=== PATIENT | female | born 1980 | race Two or more races ===

== ENCOUNTER 2021-07-11 10:05 | Observation (INO) | payer MEDICAID ==
[~2021-07-11] VITALS: Ht 149.9 cm; Wt 63.5 kg
[2021-07-11] MEDS ORDERED: PREN-96 PO (11:05)
[2021-07-11] MEDS ORDERED: METF-370 PO (11:06)
[2021-07-11] MEDS ORDERED: GLYB2.5T8 PO (11:07)
[2021-07-11 12:02] LABS: Basophils # (auto) 0 10 ^3/uL (0-0.2); Basophils % (auto) 0.4 % (0.0-2.0); Eosinophils # (auto) 0.1 10 ^3/uL (0-0.8); Eosinophils % (auto) 0.8 % (0.0-7.0); Hematocrit 35.9 % (36.0-46.0); Hemoglobin 12.1 g/dL (12.2-16.2); Lymphocytes # (auto) 2.5 10 ^3/uL (0.4-5.4); Lymphocytes % (auto) 21.5 % (10.0-50.0); Mean Corpuscular Hemoglobin 30.8 pg (28.0-32.0); Mean Corpuscular Hgb Conc. 33.8 g/dL (32.0-36.0); Mean Corpuscular Volume 91.2 fL (80.0-100.0); Monocytes # (auto) 0.5 10 ^3/uL (0-1.3); Monocytes % (auto) 4.5 % (0.0-12.0); Neutrophils # (auto) 8.5 10 ^3/uL (1.6-8.6); Neutrophils % (auto) 72.8 % (37.0-80.0); Red Blood Cells 3.94 10^6/uL (4.0-5.20); Red Cell Distribution Width 13.4 % (11.8-14.3); White Blood Cell 11.7 10^3/uL (4.4-10.8)
[2021-07-11 12:27] LABS: Albumin 2.5 g/dL (3.4-5.0); Calcium 8.7 mg/dL (8.5-10.1); Potassium 3.5 mmol/L (3.5-5.1)
[2021-07-11 12:32] LABS: BUN/Creatinine Ratio 11.1; Bilirubin, Total 0.2 mg/dL (0.2-1.0); Total Protein 6.9 g/dL (6.4-8.2)
[2021-07-11 12:44] LABS: Protein, Urine 43.9 mg/dL (0.0-11.9)
== END 2021-07-11 12:14 | disposition home or self-care (01) ==
LOC: LDRP 10:05
PROVIDERS: ADMIT Obstetrics & Gynecology; ATTEND Obstetrics & Gynecology
DX: O24.415 Gestational diabetes mellitus in pregnancy, controlled by oral hypoglycemic drugs (principal); O13.2 Gestational [pregnancy-induced] hypertension without significant proteinuria, second trimester; Z3A.27 27 weeks gestation of pregnancy
CPT/HCPCS: 36415; 59025; 80053; 81002; 82570; 82948; 82962; 83036; 84156; 85025; G0378

== ENCOUNTER 2021-07-13 11:00 | Observation (INO) | payer MEDICAID ==
[~2021-07-13 11:00] MED LIST: GLYB2.5T8 PO; METF-370 PO; PREN-96 PO
[2021-07-13 11:57] LABS: Protein, Urine 14.3 mg/dL (0.0-11.9)
[2021-07-13 12:45] LABS: 24 Hr. Total Protein, Urine 257.4 mg/24 Hr (<149.1)
== END 2021-07-13 13:10 | disposition home or self-care (01) ==
LOC: LDRP 11:00
PROVIDERS: ADMIT Obstetrics & Gynecology; ATTEND Obstetrics & Gynecology
DX: O24.419 Gestational diabetes mellitus in pregnancy, unspecified control (principal); Z3A.27 27 weeks gestation of pregnancy
CPT/HCPCS: 59025; 81002; 84156; G0378

== ENCOUNTER 2021-07-20 10:34 | Observation (INO) | payer MEDICAID | END 2021-07-20 12:32 | disposition home or self-care (01) | LOC: LDRP 10:34 | PROVIDERS: ADMIT Obstetrics & Gynecology; ATTEND Obstetrics & Gynecology | DX: O24.419 Gestational diabetes mellitus in pregnancy, unspecified control (principal); O99.333 Smoking (tobacco) complicating pregnancy, third trimester; F17.200 Nicotine dependence, unspecified, uncomplicated; Z3A.28 28 weeks gestation of pregnancy | CPT/HCPCS: 59025; 76818; 81002; 82948; 82962; 94760; G0378 ==

== ENCOUNTER 2021-07-27 11:32 | Observation (INO) | payer MEDICAID ==
[~2021-07-27] VITALS: Ht 162.6 cm; Wt 65.8 kg
== END 2021-07-27 13:10 | disposition home or self-care (01) ==
LOC: LDRP 11:32
PROVIDERS: ADMIT Obstetrics & Gynecology; ATTEND Obstetrics & Gynecology
DX: O24.419 Gestational diabetes mellitus in pregnancy, unspecified control (principal); Z3A.29 29 weeks gestation of pregnancy; Z98.891 History of uterine scar from previous surgery
CPT/HCPCS: 59025; 76818; 81002; 82948; 82962; 94760; G0378

== ENCOUNTER 2021-08-04 08:24 | Observation (INO) | payer MEDICAID | END 2021-08-04 09:33 | disposition home or self-care (01) | LOC: LDRP 08:24 | PROVIDERS: ADMIT Obstetrics & Gynecology; ATTEND Obstetrics & Gynecology | DX: O24.419 Gestational diabetes mellitus in pregnancy, unspecified control (principal); O99.333 Smoking (tobacco) complicating pregnancy, third trimester; F17.200 Nicotine dependence, unspecified, uncomplicated; Z3A.30 30 weeks gestation of pregnancy | CPT/HCPCS: 59025; 76818; 81002; 82962; 94760; G0378; G0379 ==

== ENCOUNTER 2021-08-08 10:24 | Observation (INO) | payer MEDICAID ==
[2021-08-08] MEDS ORDERED: LACTATED RINGER'S 1,000 ML IV ONE (12:30)
[2021-08-08] MEDS ORDERED: TERBUTALINE SULFATE 1 MG/ML 1ML VIAL SC SCH (14:15)
== END 2021-08-08 15:25 | disposition home or self-care (01) ==
LOC: LDRP 10:35
PROVIDERS: ADMIT Obstetrics & Gynecology; ATTEND Obstetrics & Gynecology
DX: O24.415 Gestational diabetes mellitus in pregnancy, controlled by oral hypoglycemic drugs (principal); Z3A.31 31 weeks gestation of pregnancy
CPT/HCPCS: 59025; 76818; 81002; 82948; 82962; 96360; 96372; G0378; J3105

== ENCOUNTER 2021-08-11 10:05 | Observation (INO) | payer MEDICAID | END 2021-08-11 11:30 | disposition home or self-care (01) | LOC: LDRP 10:05 | PROVIDERS: ADMIT Obstetrics & Gynecology; ATTEND Obstetrics & Gynecology | DX: O24.415 Gestational diabetes mellitus in pregnancy, controlled by oral hypoglycemic drugs (principal); Z3A.31 31 weeks gestation of pregnancy | CPT/HCPCS: 59025; 76818; 81002; 82948; 82962; G0378; G0379 ==

== ENCOUNTER 2021-08-15 10:13 | Observation (INO) | payer MEDICAID | END 2021-08-15 12:50 | disposition home or self-care (01) | LOC: LDRP 10:45 | PROVIDERS: ADMIT Obstetrics & Gynecology; ATTEND Obstetrics & Gynecology | DX: O24.415 Gestational diabetes mellitus in pregnancy, controlled by oral hypoglycemic drugs (principal); O26.893 Other specified pregnancy related conditions, third trimester; N89.8 Other specified noninflammatory disorders of vagina; Z3A.32 32 weeks gestation of pregnancy | CPT/HCPCS: 59025; 76818; 81002; 82948; 82962; 94760; G0378 ==

== ENCOUNTER 2021-08-18 08:04 | Observation (INO) | payer MEDICAID | END 2021-08-18 09:36 | disposition home or self-care (01) | LOC: LDRP 08:04 | PROVIDERS: ADMIT Obstetrics & Gynecology; ATTEND Obstetrics & Gynecology | DX: O24.419 Gestational diabetes mellitus in pregnancy, unspecified control (principal); Z3A.32 32 weeks gestation of pregnancy; Z98.891 History of uterine scar from previous surgery | CPT/HCPCS: 59025; 76818; 81002; 82948; 82962; G0378; G0379 ==

== ENCOUNTER 2021-08-22 08:23 | Observation (INO) | payer MEDICAID | END 2021-08-22 09:45 | disposition home or self-care (01) | LOC: LDRP 08:23 | PROVIDERS: ADMIT Obstetrics & Gynecology; ATTEND Obstetrics & Gynecology | DX: O24.419 Gestational diabetes mellitus in pregnancy, unspecified control (principal); Z3A.33 33 weeks gestation of pregnancy | CPT/HCPCS: 59025; 76818; 81002; 82948; 82962; G0378 ==

== ENCOUNTER 2021-08-25 10:23 | Observation (INO) | payer MEDICAID ==
[~2021-08-25] VITALS: Ht 134.6 cm; Wt 64.4 kg
[2021-08-25] MEDS ORDERED: LACTATED RINGER'S 1,000 ML IV ONE (11:30)
[2021-08-25] MEDS: TERBUTALINE SULFATE 1 MG/ML 1ML VIAL SC SCH ×2 (11:44→12:26)
== END 2021-08-25 13:25 | disposition home or self-care (01) ==
LOC: LDRP 10:23
PROVIDERS: ADMIT Obstetrics & Gynecology; ATTEND Obstetrics & Gynecology
DX: O62.9 Abnormality of forces of labor, unspecified (principal); O26.893 Other specified pregnancy related conditions, third trimester; E86.0 Dehydration; O24.419 Gestational diabetes mellitus in pregnancy, unspecified control; Z98.891 History of uterine scar from previous surgery; Z3A.33 33 weeks gestation of pregnancy
CPT/HCPCS: 59025; 76818; 81002; 82948; 82962; 94760; 96360; 96361; 96372; G0378; J3105

== ENCOUNTER 2021-08-28 10:30 | Observation (INO) | payer MEDICAID ==
[2021-08-28] MEDS ORDERED: NIF10C PO (11:09)
[2021-08-28] MEDS ORDERED: GLYB1.257 PO (11:24)
== END 2021-08-28 12:45 | disposition home or self-care (01) ==
LOC: LDRP 10:30
PROVIDERS: ADMIT Obstetrics & Gynecology; ATTEND Obstetrics & Gynecology
DX: O24.415 Gestational diabetes mellitus in pregnancy, controlled by oral hypoglycemic drugs (principal); O60.03 Preterm labor without delivery, third trimester; Z3A.34 34 weeks gestation of pregnancy; Z79.84 Long term (current) use of oral hypoglycemic drugs; Z98.891 History of uterine scar from previous surgery
CPT/HCPCS: 59025; 76818; 81002; 82948; 82962; 94760; G0378; G0379

== ENCOUNTER 2021-09-01 07:54 | Observation (INO) | payer MEDICAID ==
[~2021-09-01 07:54] MED LIST changes: +GLYB1.257 PO; +NIF10C PO
[2021-09-01 12:28] LABS: Basophils # (auto) 0.1 10 ^3/uL (0-0.2); Basophils % (auto) 0.5 % (0.0-2.0); Eosinophils # (auto) 0.2 10 ^3/uL (0-0.8); Eosinophils % (auto) 1.9 % (0.0-7.0); Hemoglobin 12.4 g/dL (12.2-16.2); Lymphocytes % (auto) 19.6 % (10.0-50.0); Mean Corpuscular Hemoglobin 30.5 pg (28.0-32.0); Mean Corpuscular Hgb Conc. 33.5 g/dL (32.0-36.0); Monocytes # (auto) 0.6 10 ^3/uL (0-1.3); Monocytes % (auto) 5.6 % (0.0-12.0); Neutrophils # (auto) 7.4 10 ^3/uL (1.6-8.6); Neutrophils % (auto) 72.4 % (37.0-80.0); Red Blood Cells 4.06 10^6/uL (4.0-5.20); Red Cell Distribution Width 13.6 % (11.8-14.3); White Blood Cell 10.2 10^3/uL (4.4-10.8)
[2021-09-02 06:06] LABS: RPR Non Reactive (Non Reactive)
== END 2021-09-01 12:22 | disposition home or self-care (01) ==
LOC: LDRP 10:57
PROVIDERS: ADMIT Obstetrics & Gynecology; ATTEND Obstetrics & Gynecology
DX: O24.419 Gestational diabetes mellitus in pregnancy, unspecified control (principal); O60.03 Preterm labor without delivery, third trimester; Z3A.34 34 weeks gestation of pregnancy
CPT/HCPCS: 36415; 59025; 76818; 81002; 82948; 82962; 83036; 85025; 86592; 94760; G0378; G0379

== ENCOUNTER 2021-09-05 07:24 | Observation (INO) | payer MEDICAID | END 2021-09-05 10:36 | disposition home or self-care (01) | LOC: LDRP 08:51 | PROVIDERS: ADMIT Obstetrics & Gynecology; ATTEND Obstetrics & Gynecology | DX: O60.03 Preterm labor without delivery, third trimester (principal); O24.419 Gestational diabetes mellitus in pregnancy, unspecified control; Z3A.35 35 weeks gestation of pregnancy | CPT/HCPCS: 59025; 76818; 81002; 82948; 82962; G0378 ==

== ENCOUNTER 2021-09-07 07:58 | Observation (INO) | payer MEDICAID | END 2021-09-07 20:19 | disposition home or self-care (01) | LOC: LDRP 18:43 | PROVIDERS: ADMIT Obstetrics & Gynecology; ATTEND Obstetrics & Gynecology | DX: O24.419 Gestational diabetes mellitus in pregnancy, unspecified control (principal); O60.03 Preterm labor without delivery, third trimester; Z3A.35 35 weeks gestation of pregnancy | CPT/HCPCS: 59025; 76818; 81002; 82948; 82962; G0378; G0379 ==

== ENCOUNTER 2021-09-11 08:21 | Observation (INO) | payer MEDICAID | END 2021-09-11 13:28 | disposition home or self-care (01) | LOC: LDRP 11:56 | PROVIDERS: ADMIT Obstetrics & Gynecology Obstetrics; ATTEND Obstetrics & Gynecology Obstetrics | DX: O24.419 Gestational diabetes mellitus in pregnancy, unspecified control (principal); Z3A.36 36 weeks gestation of pregnancy | CPT/HCPCS: 59025; 76818; 81002; 82948; 82962; G0378; G0379 ==

== ENCOUNTER 2021-09-14 08:34 | Observation (INO) | payer MEDICAID ==
[2021-09-14 17:20] LABS: Basophils # (auto) 0.1 10 ^3/uL (0-0.2); Basophils % (auto) 1.1 % (0.0-2.0); Eosinophils # (auto) 0.1 10 ^3/uL (0-0.8); Eosinophils % (auto) 0.7 % (0.0-7.0); Hematocrit 36.6 % (36.0-46.0); Hemoglobin 12.6 g/dL (12.2-16.2); Lymphocytes # (auto) 2.2 10 ^3/uL (0.4-5.4); Lymphocytes % (auto) 25.3 % (10.0-50.0); Mean Corpuscular Hemoglobin 31.5 pg (28.0-32.0); Mean Corpuscular Hgb Conc. 34.4 g/dL (32.0-36.0); Mean Corpuscular Volume 91.7 fL (80.0-100.0); Monocytes # (auto) 0.6 10 ^3/uL (0-1.3); Monocytes % (auto) 6.8 % (0.0-12.0); Neutrophils # (auto) 5.6 10 ^3/uL (1.6-8.6); Neutrophils % (auto) 66.1 % (37.0-80.0); Nucleated Red Blood Cells % 0.1 %; Red Blood Cells 3.99 10^6/uL (4.0-5.20); Red Cell Distribution Width 13.5 % (11.8-14.3); White Blood Cell 8.5 10^3/uL (4.4-10.8)
[2021-09-15 06:06] LABS: RPR Non Reactive (Non Reactive)
== END 2021-09-14 17:10 | disposition home or self-care (01) ==
LOC: LDRP 16:12
PROVIDERS: ADMIT Obstetrics & Gynecology; ATTEND Obstetrics & Gynecology
DX: O24.419 Gestational diabetes mellitus in pregnancy, unspecified control (principal); O60.03 Preterm labor without delivery, third trimester; Z3A.36 36 weeks gestation of pregnancy
CPT/HCPCS: 36415; 59025; 76818; 81002; 82948; 82962; 83036; 85025; 86592; G0378; G0379

== ENCOUNTER 2021-09-18 07:18 | Observation (INO) | payer MEDICAID | END 2021-09-18 10:39 | disposition home or self-care (01) | LOC: LDRP 09:36 | PROVIDERS: ADMIT Obstetrics & Gynecology Obstetrics; ATTEND Obstetrics & Gynecology Obstetrics | DX: O24.419 Gestational diabetes mellitus in pregnancy, unspecified control (principal); O62.9 Abnormality of forces of labor, unspecified; Z3A.37 37 weeks gestation of pregnancy | CPT/HCPCS: 59025; 76818; 81002; 82948; 82962; 94760; G0378; G0379 ==

== ENCOUNTER 2021-09-21 07:52 | Observation (INO) | payer MEDICAID | END 2021-09-21 09:35 | disposition home or self-care (01) | LOC: LDRP 08:40 | PROVIDERS: ADMIT Obstetrics & Gynecology; ATTEND Obstetrics & Gynecology | DX: O24.419 Gestational diabetes mellitus in pregnancy, unspecified control (principal); O09.523 Supervision of elderly multigravida, third trimester; Z3A.37 37 weeks gestation of pregnancy | CPT/HCPCS: 59025; 76818; 81002; 82948; 82962; G0378; G0379 ==

== ENCOUNTER 2021-09-25 07:32 | Observation (INO) | payer MEDICAID ==
[~2021-09-25 07:32] MED LIST changes: -GLYB1.257 PO
== END 2021-09-25 15:37 | disposition home or self-care (01) ==
LOC: LDRP 14:20
PROVIDERS: ADMIT Obstetrics & Gynecology Obstetrics; ATTEND Obstetrics & Gynecology Obstetrics
DX: O24.419 Gestational diabetes mellitus in pregnancy, unspecified control (principal); O09.523 Supervision of elderly multigravida, third trimester; Z3A.38 38 weeks gestation of pregnancy
CPT/HCPCS: 59025; 76818; 81002; 82948; 82962; 94760; G0378

== ENCOUNTER 2021-09-28 08:12 | Observation (INO) | payer MEDICAID ==
[~2021-09-28 08:12] MED LIST changes: -NIF10C PO
== END 2021-09-28 13:50 | disposition home or self-care (01) ==
LOC: LDRP 11:42
PROVIDERS: ADMIT Obstetrics & Gynecology; ATTEND Obstetrics & Gynecology
DX: O24.419 Gestational diabetes mellitus in pregnancy, unspecified control (principal); Z20.822 Contact with and (suspected) exposure to COVID-19; Z3A.38 38 weeks gestation of pregnancy
CPT/HCPCS: 59025; 76818; 81002; 82962; 94760; G0378

== ENCOUNTER 2021-10-01 04:59 | Inpatient (IN) | payer MEDICAID ==
[2021-10-01] VITALS (13 sets, daily range): BP systolic 121–140; BP diastolic 76–91
[~2021-10-01] VITALS: Ht 162.6 cm; Wt 65.3 kg
[2021-10-01] MEDS ORDERED: ceFAZolin 1GM/50ML 50 ML IV ONE (05:15)
[2021-10-01] MEDS ORDERED: LACTATED RINGER'S 1,000 ML IV ONE (05:15)
[2021-10-01] MEDS ORDERED: SODIUM CITR/CITRIC ACID ORAL SOLN 30 ML PO ONE (05:15)
[2021-10-01] MEDS: LACTATED RINGER'S 1,000 ML IV SCH ×4 (05:58→17:15)
[2021-10-01 06:18] LABS: Urine Bacteria FEW /hpf (None Seen); Urine Blood Negative /uL (Negative); Urine Mucus FEW (None Seen); Urine Specific Gravity 1.019 (1.001-1.035); Urine WBC 1 /hpf (0 - 5)
[2021-10-01 06:31] LABS: Amphetamine Screen, Urine NEGATIVE (NEGATIVE)
[2021-10-01 06:45] LABS: Alcohol, Urine < 3.0 mg/dL (0-10); Barbiturate Scree,Urine NEGATIVE (NEGATIVE); Benzodiazephine Screen, Urine NEGATIVE (NEGATIVE); Cannabinoid Screen, Urine NEGATIVE (NEGATIVE); Cocaine Screen, Urine NEGATIVE (NEGATIVE); Opiate Scree,Urine NEGATIVE (NEGATIVE); Phencyclidine Screen, Urine NEGATIVE (NEGATIVE)
[2021-10-01 06:47] LABS: Basophils # (auto) 0.1 10 ^3/uL (0-0.2); Basophils % (auto) 0.8 % (0.0-2.0); Eosinophils # (auto) 0.2 10 ^3/uL (0-0.8); Lymphocytes # (auto) 2.5 10 ^3/uL (0.4-5.4); Lymphocytes % (auto) 26.5 % (10.0-50.0); Mean Corpuscular Hemoglobin 31.7 pg (28.0-32.0); Mean Corpuscular Hgb Conc. 34.3 g/dL (32.0-36.0); Mean Corpuscular Volume 92.3 fL (80.0-100.0); Monocytes # (auto) 0.4 10 ^3/uL (0-1.3); Monocytes % (auto) 4.7 % (0.0-12.0); Neutrophils # (auto) 6.2 10 ^3/uL (1.6-8.6); Nucleated Red Blood Cells % 0.1 %; Red Cell Distribution Width 13.3 % (11.8-14.3); White Blood Cell 9.4 10^3/uL (4.4-10.8)
[2021-10-01 07:17] LABS: Potassium 3.6 mmol/L (3.5-5.1)
[2021-10-01 07:23] LABS: Albumin 2.2 g/dL (3.4-5.0); BUN/Creatinine Ratio 12.5; Bilirubin, Total 0.3 mg/dL (0.2-1.0); Calcium 8.1 mg/dL (8.5-10.1); Total Protein 6.3 g/dL (6.4-8.2)
[2021-10-01 07:32] LABS: INR 0.94 (0.9-1.15); Partial Thromboplastin Time 26.9 sec (23.6-33.0)
[2021-10-01] MEDS ORDERED: MORPHINE SULF PF 2 MG/2 ML SYRG ONE (08:31)
[2021-10-01] MEDS ORDERED: fentaNYL CITRATE 100 MCG/2 ML VL ONE (08:31)
[2021-10-01] MEDS ORDERED: HYDR-4902 PO (08:38)
[2021-10-01] MEDS ORDERED: IBUP800T27 PO (08:38)
[2021-10-01] MEDS ORDERED: DOCU-94 PO (08:38)
[2021-10-01] MEDS ORDERED: ONDANSETRON HCL 4 MG/2 ML VIAL IV PRN ×2 (08:45→10:00)
[2021-10-01] MEDS ORDERED: LACT. RINGERS/OXYTOCIN 20UNITS 1,000 ML IV ONE (08:45)
[2021-10-01] MEDS ORDERED: oxyTOCIN 10 UNIT/ML 10ML VIAL ONE (09:15)
[2021-10-01] MEDS ORDERED: NALBUPHINE HCL 10 MG/1ml INJECTION SUBCUT ONE (10:00)
[2021-10-01] MEDS ORDERED: ALBUMIN 5% 500 ML IV ONE (10:05)
[2021-10-01] MEDS ORDERED: ALBUMIN 5% 250 ML IV ONE ×2 (10:15)
[2021-10-01] MEDS: ACETAMINOPHEN IV 1000 MG/100ML (10MG/ML) IV PRN (14:20)
[2021-10-01] MEDS ORDERED: ceFAZolin 1GM/50ML 50 ML IV SCH (14:30)
[2021-10-01] MEDS: ceFAZolin 1GM/50ML 50 ML IV SCH ×2 (17:07→23:50)
[2021-10-01 21:50] LABS: Basophils # (auto) 0.1 10 ^3/uL (0-0.2); Basophils % (auto) 0.6 % (0.0-2.0); Eosinophils # (auto) 0.1 10 ^3/uL (0-0.8); Eosinophils % (auto) 0.8 % (0.0-7.0); Hematocrit 36.6 % (36.0-46.0); Hemoglobin 12.4 g/dL (12.2-16.2); Lymphocytes # (auto) 1.6 10 ^3/uL (0.4-5.4); Lymphocytes % (auto) 11.3 % (10.0-50.0); Mean Corpuscular Hemoglobin 31.4 pg (28.0-32.0); Mean Corpuscular Volume 92.4 fL (80.0-100.0); Monocytes # (auto) 0.7 10 ^3/uL (0-1.3); Monocytes % (auto) 5.4 % (0.0-12.0); Neutrophils # (auto) 11.4 10 ^3/uL (1.6-8.6); Neutrophils % (auto) 81.9 % (37.0-80.0); Nucleated Red Blood Cells % 0.1 %; Red Blood Cells 3.96 10^6/uL (4.0-5.20); Red Cell Distribution Width 13.2 % (11.8-14.3); White Blood Cell 13.9 10^3/uL (4.4-10.8)
[2021-10-02] VITALS (11 sets, daily range): BP systolic 108–138; BP diastolic 62–86
[2021-10-02] MEDS: MORPHINE SULFATE 4 MG/ML SYR/VIAL IV PRN ×2 (01:50→06:50)
[2021-10-02] MEDS: ACETAMINOPHEN IV 1000 MG/100ML (10MG/ML) IV PRN (01:51)
[2021-10-02] MEDS ORDERED: HYDROcodone-ACET 5/325MG TAB PO PRN (07:30)
[2021-10-02] MEDS: ceFAZolin 1GM/50ML 50 ML IV SCH (07:44)
[2021-10-02] MEDS: LACTATED RINGER'S 1,000 ML IV SCH ×2 (07:58→08:00)
[2021-10-02] MEDS: DOCUSATE SOD 100 MG CAP PO SCH (10:07)
[2021-10-02] MEDS: SIMETHICONE 80 MG CHEWABLE TABLET PO PRN ×3 (10:07→22:01)
[2021-10-02] MEDS: HYDROcodone-ACET 5/325MG TAB PO PRN ×2 (10:08→17:45)
[2021-10-02 11:35] LABS: Basophils # (auto) 0.1 10 ^3/uL (0-0.2); Basophils % (auto) 0.4 % (0.0-2.0); Eosinophils # (auto) 0 10 ^3/uL (0-0.8); Eosinophils % (auto) 0.1 % (0.0-7.0); Hematocrit 34.4 % (36.0-46.0); Hemoglobin 11.8 g/dL (12.2-16.2); Lymphocytes # (auto) 1.1 10 ^3/uL (0.4-5.4); Lymphocytes % (auto) 8.1 % (10.0-50.0); Mean Corpuscular Hemoglobin 31.7 pg (28.0-32.0); Mean Corpuscular Hgb Conc. 34.2 g/dL (32.0-36.0); Mean Corpuscular Volume 92.7 fL (80.0-100.0); Monocytes # (auto) 0.8 10 ^3/uL (0-1.3); Monocytes % (auto) 5.9 % (0.0-12.0); Neutrophils # (auto) 11.8 10 ^3/uL (1.6-8.6); Neutrophils % (auto) 85.5 % (37.0-80.0); Nucleated Red Blood Cells % 0.2 %; Red Cell Distribution Width 13.3 % (11.8-14.3); White Blood Cell 13.8 10^3/uL (4.4-10.8)
[2021-10-02] MEDS: IBUPROFEN 800 MG TAB PO PRN (12:03)
[2021-10-03 03:10] VITALS: BP 141/80
[2021-10-03] MEDS: HYDROcodone-ACET 5/325MG TAB PO PRN ×2 (03:16→19:55)
[2021-10-03] MEDS: LACTATED RINGER'S 1,000 ML IV SCH ×3 (05:15→21:15)
[2021-10-03 06:06] LABS: RPR Non Reactive (Non Reactive)
[2021-10-03 07:00] VITALS: BP 138/85
[2021-10-03] MEDS: DOCUSATE SOD 100 MG CAP PO SCH ×3 (10:00→22:00)
[2021-10-03] MEDS: SIMETHICONE 80 MG CHEWABLE TABLET PO PRN ×2 (10:55→18:48)
[2021-10-03 11:00] VITALS: BP 134/84
[2021-10-03] MEDS ORDERED: TETANUS-DIPTH-ACEL PERTUSSIS 0.5ML SYR Tdap IM ONE (13:45)
[2021-10-03] MEDS: IBUPROFEN 800 MG TAB PO PRN ×2 (14:05→21:54)
[2021-10-03 14:30] VITALS: BP 138/86
[2021-10-03 19:00] VITALS: BP 135/77
[2021-10-03] MEDS ORDERED: BISACODYL 10 MG RECT SUPP PR PRN (19:30)
[2021-10-03 23:00] VITALS: BP 135/75
[2021-10-04] MEDS: HYDROcodone-ACET 5/325MG TAB PO PRN ×2 (01:08→06:53)
[2021-10-04 03:00] VITALS: BP 121/74
[2021-10-04] MEDS: LACTATED RINGER'S 1,000 ML IV SCH (05:15)
[2021-10-04] MEDS: IBUPROFEN 800 MG TAB PO PRN (05:55)
[2021-10-04 06:45] VITALS: BP 133/89
[2021-10-04 09:40] VITALS: BP 136/86
== END 2021-10-04 09:40 | disposition home or self-care (01) | DRG 540 ==
LOC: LDRP 04:59
PROVIDERS: ADMIT Obstetrics & Gynecology; ATTEND Obstetrics & Gynecology
PROC: 10D00Z1 Extraction of Products of Conception, Low, Open Approach (ICD-10-PCS; principal; 2021-10-01 08:36)
DX: O34.211 Maternal care for low transverse scar from previous cesarean delivery (principal); Z37.0 Single live birth; Z3A.39 39 weeks gestation of pregnancy
CPT/HCPCS: 36415; 59025; 80053; 80307; 81001; 81002; 82962; 84112; 85025; 85610; 85730; 86592; 86850; 86900; 86901; 90715; 94760; 94762; 96360; 96361; G0378; J0131; J0690; J2590